=== PATIENT | female | born 1975 ===

== ENCOUNTER 2017-01-16 19:56 | Emergency (ER) | payer SELFPAY ==
[2017-01-16 20:42] VITALS: BP 112/74; PULSE 85; RESP 16; TEMP 98.6; O2SAT 99
--- NOTE | 2017-01-16 21:54 | ED PDOC ---
HPI: Female Pain Time Seen by Provider: 01/16/17 21:14 Chief Complaint (Nursing): Female Genitourinary Chief Complaint (Provider): Vaginal itchiness History/Exam Limitations: no limitations Onset/Duration Of Symptoms: Days (x6 months) Current Symptoms Are (Timing): Still Present Additional Complaint(s): 41 y.o female presents to the emergency department with a complaint of vaginal itchiness x6 months. Reports she went to the clinic 2 months ago and diagnosed with musculum contagiosum. Patient advised to see a specialist (WILDL[facility] TECHNICIAN) due to having a previous visit in this ER on 09/03/2016 where all exams came out negative without any abnormal findings. Denies any further medical complaints. Of note, patient was prescribed a Flagyll intervaginal gel and diflucan without the relief of symptoms. Past Medical History Reviewed: Historical Data, Nursing Documentation, Vital Signs Vital Signs: Last Vital Signs Temp 98.6 F 01/16/17 20:38 Pulse 85 01/16/17 20:38 Resp 16 01/16/17 20:38 BP 112/74 01/16/17 20:38 Pulse Ox 99 01/16/17 20:38 - Medical History PMH: No Chronic Diseases - Surgical History Surgical History: No Surg Hx - Family History Family History: States: Unknown Family Hx - Home Medications Home Medications: Ambulatory Orders Medication Instructions Recorded Fluconazole [Diflucan] 150 mg PO ONCE #1 tab 09/03/16 Metronidazole [Metrogel] 60 gm VAG HS #1 packet 09/03/16 - Allergies Allergies/Adverse Reactions: Allergies Allergy/AdvReac Type Severity Reaction Status Date / Time No Known Allergies Allergy Verified 09/03/16 18:39 Review of Systems ROS Statement: Except As Marked, All Systems Reviewed And Found Negative Genitourinary Female: Positive for: Other (Vaginal itchiness) Physical Exam - Reviewed Nursing Documentation Reviewed: Yes Vital Signs Reviewed: Yes - Physical Exam Appears: Positive for: Non-toxic, No Acute Distress Head Exam: Positive for: ATRAUMATIC, NORMOCEPHALIC Skin: Positive for: Normal Color, Warm, Dry Cardiovascular/Chest: Positive for: Regular Rate, Rhythm. Negative for: Murmur Respiratory: Positive for: Normal Breath Sounds. Negative for: Accessory Muscle Use, Respiratory Distress Neurologic/Psych: Positive for: Alert, Oriented - ECG O2 Sat by Pulse Oximetry: 99 (RA) Pulse Ox Interpretation: Normal Medical Decision Making Medical Decision Making: Time: 21:30 Upon provider reevaluation patient is medically stable, and requires no further treatment in the ED at this time. Patient will be discharged home. Counseling was provided and all questions were answered regarding diagnosis and need for follow up with referred clinics. There is agreement to discharge plan. Return if symptoms persist or worsen. Clinical Impression: Vaginal Irritation Scribe Attestation: Documented by Giovanna Chauhan, acting as a scribe for Jeni Gonzales PA-C. Provider Scribe Attestation: All medical record entries made by the Scribe were at my direction and personally dictated by me. I have reviewed the chart and agree that the record accurately reflects my personal performance of the history, physical exam, medical decision making, and the department course for this patient. I have also personally directed, reviewed, and agree with the discharge instructions and disposition. Disposition - Clinical Impression Clinical Impression: Vaginal irritation - Patient ED Disposition Is Patient to be Admitted: No Counseled Patient/Family Regarding: Diagnosis, Need For Followup - Disposition Referrals: [facility] [Outside] [facility] [Outside] Disposition: Routine/Home Disposition Time: 21:30 Condition: STABLE Additional Instructions: Please follow-up with [facility].
== END 2017-01-16 21:46 | disposition home or self-care (01) ==
LOC: H.ER 19:56
DX: N89.8 Other specified noninflammatory disorders of vagina (principal)